=== PATIENT | female | born 1960 | race Caucasian/White ===

== ENCOUNTER 2016-10-07 17:51 | Emergency (ER) | payer MEDICARE, OTHER ==
--- NOTE | ~2016-10-07 | CT4 ---
[facility] A Service of [facility] & [facility] RADIOLOGY TEXT RESULTS PATIENT: CARINA PEGUERO LOCATION: [facility] : 58 UNIT #: [id number] AGE: [address]: Suman Balderas MD SEX: F ORDER DR: [id number] [facility] [address] [place], [place] [address] [id number] E MR#: [id number] Acc #: [id number] NAME: CARINA PEGUERO : 1960 SEX: F STUDY DATE/TIME: 10/07/2016 16:46 UNIT: [facility] ROOM: STUDY DESCRIPTION: CT Abd and Pelv Wo Cont Attending Physician: Suman Balderas M.D. Ordering Physician: Suman Balderas M.D. Primary Care Physician: Estuardo Frederick Sr., M.D. MEDICAL IMAGING REPORT This report is preliminary unless electronic signature is present EXAM CT of the abdomen and pelvis without contrast dated 10/07/[address] abdomen and pelvis without contrast dated 05/12/2014. HISTORY Possible obstruction, chronic constipation. Dilated small bowel loops are reported on outside KUB a week ago. TECHNIQUE This CT exam was performed with one or more of the following radiation dose reduction techniques: automatic control, adjustment of mA and/or kV according to patient size, and iterative reconstruction. FINDINGS CT of the abdomen and pelvis were obtained without contrast in the axial plane followed by sagittal and coronal reformats. LOWER CHEST: Dependent atelectatic changes are noted in the right lung base. No pleural effusion or pneumothorax. Imaged inferior heart is within normal limits. There is a gpssriih-qg-matns hiatal hernia noted. ABDOMEN: Lack of IV and oral contrast significantly limits evaluation. Patient is also rotated and the images are limited in evaluation. Patient has multiple surgical vinny noted adjacent to the bowel loops in the left upper to mid abdomen. A jejunostomy tube is in place. There is nonspecific dilatation of the bowel loops involving both the large bowel loops and to a lesser degree the ileal loops. Lack of oral contrast limits evaluation. There is hfan-ir-zovlinar stool burden in the colon particularly in the rectosigmoid colon. No obvious free fluid or free air is seen intraperitoneally. Lack of IV contrast limits evaluation of solid organs. Grossly no significant abnormality could be discerned. [facility] A Service of [facility] & [facility] RADIOLOGY TEXT RESULTS PATIENT: CARINA PEGUERO LOCATION: [facility] : 58 UNIT #: [id number] AGE: [address]: Suman Balderas MD SEX: F ORDER DR: Gallbladder appears to be unremarkable. Well-defined pancreas with normal parenchymal density is not seen. There is patchy density in this region without any surgical vinny and there can be diffuse fatty atrophy of the pancreas with some calcifications in the region of the pancreatic head and the uncinate process. No significant large lymphadenopathy is seen. Degenerative changes are noted in the lumbar spine, mild. PELVIS: Postoperative changes are noted in the rectosigmoid colon, stable since last year. No free fluid is seen in the pelvis. There is stool burden in the rectosigmoid colon, mild. There is some fat stranding along the lateral aspect of the rectosigmoid colon close to the lateral pelvic braun on both sides, particularly on the right, best seen on the coronal sequences (series 602, image 33). It does not represent any drainable fluid collection. Given the nearby postoperative changes it could be chronic change. IMPRESSION 1. Multiple postoperative surgical vinny are noted in the abdomen and probably involving the colon. Correlate with operative note. 2. There is nonspecific dilated bowel loops predominantly involving the colon and to a lesser degree the ileum. Well-defined zone of transition is difficult to clearly visualize in this study without contrast and limited. Partial small bowel obstruction cannot be excluded. Correlate clinically. 3. There is zkqm-eb-efffozli stool burden in the colon. Jejunostomy tube is in place. 4. No obvious free fluid, free air is seen intraperitoneally. 5. There is some fat stranding along the lateral aspect of the rectosigmoid colon close to the lateral pelvic braun on both sides, particularly on the right, best seen on the coronal sequences (series 602, image 33). It does not represent any drainable fluid collection. Given the nearby postoperative changes it could be chronic change. 6. Lack of IV and oral contrast limits evaluation. 7. There appears to be diffuse fatty infiltration of the pancreas with some calcifications. Chronic pancreatitis is in the differential consideration. Dictated by... Maryanne Buchanan M.D. THIS IS AN ELECTRONICALLY VERIFIED REPORT Maryanne Buchanan M.D. at 10/12/2016 9:05 AM CPR/rnr [facility] A Service of [facility] & [facility] RADIOLOGY TEXT RESULTS PATIENT: CARINA PEGUERO [id number] 58 UNIT #: [id number] AGE: [address]: Suman Balderas MD SEX: F ORDER DR: TD: 10/08/2016 02:11 JOB #: [id number] MEDICAL IMAGING REPORT Page 1 of 1 COPY
[~2016-10-07 17:51] MED LIST: ACETAMINOPHEN GT; ALL DAY ALLERGY10 M2 JT; APAP325 MG GT; AURODEX EAR DRO15 ML OT; BACID PEG; BENADRYL12.5 MG PEG; BISACODYL10 MG/SUPP PR; BONIVA150 MG PO; CARAFATE1 G PEG; CENTRUM GT; CENTRUM PEG; CETIRIZINE HCL10 MG GT; CIPRO HC OTIC S10 ML OT; CIPRO500 MG/5 M; COLACE GT; CORTISPORIN-TC10 M1 AU; CORTISPORIN-TC10 M1 OT; DEEP SEA NASAL SPRAY NS; DIASENSE MAGNE400 MG PEG; DOXYCYCLINE GT; EES; FENOFIBRATE48 MG PEG; FENOFIBRATE48 MG PO; FLONASE 0.05% N16 G1; FLONASE16 GM NS; GAS RELIEF40 MG/0.6 PEG; HEALTHYLAX17 GM GT; IMMUNOTHERAPY SUBQ; LACTULOSE10 G/15 ML GT; LEVAQUIN PEG; LUNESTA GT; MIRALAX17 G2 GT; MIRALAX17 GM JT; MIRALAX17 GM PEG; MIRALAX255 GM PEG; MOBIC15 MG GT; MORGIDOX100 MG PEG; MULTI VITAMIN1 EACH JT; MULTI-VITAMIN1 TAB GT; NASONEX17 GM; NEO AD; NEXIUM20 MG/PACK GT; NEXIUM40 MG/PACK GT; NEXIUM40 MG/PACK JT; NEXIUM40 MG/PACK PEG; NEXIUM40 MG/PACK PO; OCUFLOX10 ML OT; OMEGA 3 FISH OI1 CAP JT; OMEGA-31000 M1 GT; OMNICEF300 MG JT; OYSTER CALCIUM500 MG GT; OYSTER SHELL C1 EAC3 GT; OYSTER SHELL C1 EAC3 PEG; OYSTER SHELL W GT; OYSTERCAL-D 501 EACH JT; PHENERGAN GT; PHENERGAN PR; PHENERGAN SUPP25 MG PR; POLYMYXIN AD; PREVACID GT; SENNA S TABLET1 TAB GT; SENNA8.8 MG/5 M GT; SENNA8.8 MG/5 M JT; SENNA8.8 MG/5 M PEG; SENNA8.8 MG/5 M PO; SENNA8.8 MG/51 GT; SUDAFED GT; TOBRADEX OT; TRAMADOL HCL50 M1 GT; TRAMADOL HCL50 M1 PEG; TRICOR GT; TYL325 PEG; VITAMIN D1000 UNIT PEG; VITAMIN D250000 UNIT GT; VITAMIN D5000 UNIT PEG; VITAMIN D50000 UNIT GT; VITAMIN D50000 UNIT JT; ZOFRANODT PO; ZYRTEC GT; ZYRTEC10 M2 PEG; [UNRECOGNIZED DRUG - OTHER] AD; [UNRECOGNIZED DRUG - OTHER] OT
== END 2016-10-07 22:15 ==
LOC: CED 17:51
DX: K59.00 Constipation, unspecified (principal); Z88.1 Allergy status to other antibiotic agents
CPT/HCPCS: 74176; 99282; 99284

== ENCOUNTER 2016-10-18 23:15 | Emergency (ER) | payer MEDICARE, OTHER ==
--- NOTE | ~2016-10-18 | CR7 ---
[facility] A Service of [facility] & [facility] RADIOLOGY TEXT RESULTS PATIENT: CARINA PEGUERO LOCATION: [facility] : 58 UNIT #: [id number] AGE: [address]: Gibran Fairbanks MD SEX: F ORDER DR: [id number] [facility] [address] [place], [place] [address] [id number] E MR#: [id number] Acc #: [id number] NAME: CARINA PEGUERO : 1960 SEX: F STUDY DATE/TIME: 10/19/2016 00:22 UNIT: [facility] ROOM: STUDY DESCRIPTION: CR Abdomen Single AP View Attending Physician: Nikolai Fairbanks M.D. Ordering Physician: Nikolai Fairbanks M.D. Primary Care Physician: Estuardo Frederick Sr., M.D. MEDICAL IMAGING REPORT This report is preliminary unless electronic signature is present EXAM KUB, 10/19 at 00:22 hours INDICATION Tube placement. Nausea, vomiting and abdominal pain. FINDINGS Supine view of the abdomen was obtained. The patient's feeding tube was injected with water soluble contrast. Injection of the tube fills a jejunal loop in the left mid abdomen. Multiple gas-filled loops of large and small bowel are stable from prior and presumably reflect a generalized ileus. IMPRESSION Tube injection fills a jejunal loop in the left mid abdomen. Gas-filled large and small bowel loops suggest a generalized ileus and are similar appearance to the prior exam. Dictated by... Rusty Vega Jr., M.D. THIS IS AN ELECTRONICALLY VERIFIED REPORT Rusty Vega Jr., M.D. at 10/19/2016 9:24 PM RAGHAV/gui TD: 10/19/2016 09:20 JOB #: [id number] MEDICAL IMAGING REPORT Page 1 of 1 COPY
[2016-10-19 00:17] LABS: BASOPHIL% 0.3 % (0-2.5); EOSINOPHIL% 0.2 % (0.0-7.0); HEMATOCRIT 44.2 % (35.0-45.0); HEMOGLOBIN 14.8 gm/dL (12.0-16.0); LYMPHOCYTE# 0.9 X10e3 (1.0-3.5); LYMPHOCYTE% 8.1 % (17.0-45.0); MEAN CELL VOLUME 94.8 FL (83-96); MEAN CORPUSCULAR HEMOGLOBIN 31.8 PG (28-34); MEAN CORPUSCULAR HGB CONC 33.6 g/dL (30-36); MEAN PLATELET VOLUME 8.9 FL (6.5-11.5); MONOCYTE# 0.6 X10e3 (0-1.0); MONOCYTE% 5.1 % (3.0-12.0); NEUTROPHIL# 9.5 X10e3 (1.5-7.1); NEUTROPHIL% 86.3 % (40-75); PLATELET COUNT 236 X10e3 (140-420); RED BLOOD COUNT 4.66 X10e (3.90-5.30); RED CELL DISTRIBUTION WIDTH 12.5 % (11.0-15.5)
[2016-10-19 00:18] LABS: DIFF IND NO
[2016-10-19 01:15] LABS: ALBUMIN SERUM 4.8 g/dL (3.5-5.0); BILIRUBIN, DIRECT 0.1 mg/dL (0.0-0.2); BILIRUBIN,INDIRECT 0.3 mg/dL (0.0-0.9); BILIRUBIN,TOTAL 0.4 mg/dL (0.2-2.0); BUN/CREATININE RATIO 47.5; CALCIUM SERUM 10.2 mg/dL (8.4-10.2); CREATININE SERUM 0.4 mg/dL (0.6-1.4); GLOM FILT RATE Estimated 115.6 mL/min (>60); POTASSIUM 4.3 mmol/L (3.5-5.1); PROTEIN TOTAL SERUM 8.5 g/dL (6.0-8.3)
== END 2016-10-19 04:59 | disposition home or self-care (01) ==
LOC: CED 23:15
PROVIDERS: Emergency Medicine
DX: R11.10 Vomiting, unspecified (principal); H54.0 Blindness, both eyes; Z98.890 Other specified postprocedural states
CPT/HCPCS: 36415; 74000; 80048; 80076; 82150; 83690; 85025; 99283

== ENCOUNTER → 2016-11-29 | Outpatient (CLI) | payer MEDICARE, OTHER | END | disposition home or self-care (01) | LOC: CSSDAY 13:30 | DX: M81.0 Age-related osteoporosis without current pathological fracture (principal) | CPT/HCPCS: 96372; J0897 ==

== ENCOUNTER → 2017-02-08 | Outpatient (CLI) | payer MEDICARE, OTHER ==
--- NOTE | ~2017-02-08 | CT4 ---
[facility] A Service of [facility] RADIOLOGY TEXT RESULTS PATIENT: CARINA PEGUERO [facility] 58 UNIT #: [id number] AGE: [address]: Estuardo Frederick MD SEX: F ORDER DR: [id number] [id number] [facility] [address] [place], [place] [address] [id number] O MR#: [id number] Acc #: [id number] NAME: CARINA PEGUERO : 1960 SEX: F STUDY DATE/TIME: 02/08/2017 8:42 UNIT: [facility] ROOM: STUDY DESCRIPTION: CT Abd and Pelv Wo Cont Attending Physician: Estuardo Frederick Sr., M.D. Referring Physician: Estuardo Frederick Sr., M.D. Ordering Physician: Estuardo Frederick Sr., M.D. Primary Care Physician: Estuardo Frederick Sr., M.D. MEDICAL IMAGING REPORT This report is preliminary unless electronic signature is present EXAM CT abdomen and pelvis without contrast INDICATIONS Abdominal tenderness and constipation since February [address] of the abdomen and pelvis was performed without contrast. Coronal and sagittal reformatted images were obtained. This CT exam was performed with one or more of the following radiation dose reduction techniques: automatic control, adjustment of mA and/or kV according to patient size, and iterative reconstruction. COMPARISON 10/07/2016. FINDINGS There is trace pleural fluid in the lung bases. There is a small hiatal hernia. The liver is unremarkable. The gallbladder and spleen are unremarkable. Kidneys, adrenal glands are unremarkable. There is fatty atrophy of the pancreas. No evidence for bowel obstruction. There is a jejunostomy tube. PELVIS: Colon is unremarkable. No free fluid. Bone windows are unremarkable. IMPRESSION 1. No evidence for bowel obstruction. 2. Trace pleural fluid bilaterally. 3. Fatty atrophy of the pancreas. Dictated by... Terrell Zavala M.D. [facility] A Service of [facility] & [facility] RADIOLOGY TEXT RESULTS PATIENT: ACRINA PEGUERO LOCATION: [facility] #: [id number] : 58 UNIT #: [id number] AGE: [address]: Estuardo Frederick MD SEX: F ORDER DR: THIS IS AN ELECTRONICALLY VERIFIED REPORT Terrell Zavala M.D. at 02/10/2017 8:00 AM PIPE/radha TD: 02/08/2017 15:42 JOB #: [id number] MEDICAL IMAGING REPORT Page 1 of 1 COPY
== END | disposition home or self-care (01) ==
LOC: CCAT 07:56
DX: R10.9 Unspecified abdominal pain (principal); K59.00 Constipation, unspecified; K86.89 Other specified diseases of pancreas
CPT/HCPCS: 74176